=== PATIENT | female | born 1965 ===

== ENCOUNTER 2021-08-03 15:55 | Outpatient (CLI) | payer OTHER | END 2021-08-03 15:57 | disposition home or self-care (01) | LOC: RAD 15:55 | PROVIDERS: ATTEND Orthopaedic Surgery | DX: M25.571 Pain in right ankle and joints of right foot (principal) ==

== ENCOUNTER 2021-11-09 07:56 | Outpatient (CLI) | payer OTHER | END 2021-11-09 07:57 | disposition home or self-care (01) | LOC: LAB 07:56 | PROVIDERS: ATTEND Orthopaedic Surgery | DX: E55.9 Vitamin D deficiency, unspecified (principal); M85.9 Disorder of bone density and structure, unspecified; E56.1 Deficiency of vitamin K ==

== ENCOUNTER 2024-11-27 11:09 | Outpatient (CLI) | payer OTHER | END 2024-11-27 11:11 | disposition home or self-care (01) | LOC: RAD 11:09 | PROVIDERS: ATTEND Orthopaedic Surgery | DX: M79.671 Pain in right foot (principal); M79.672 Pain in left foot ==